=== PATIENT | male | born 1990 | race Caucasian/White ===

== ENCOUNTER 2016-07-21 19:29 | Inpatient (IN) | payer OTHER ==
--- NOTE | ~2016-07-21 | PA ---
Unit #: [id number] #: [id number] Patient: HOMER CEJA [id number] [facility] [address] [place] [address] [id number] MR#: [id number] NAME: HOMER CEJA. ROOM: [facility] Age: 25 Sex: M Admission Date: 07/21/2016 : 1990 Date of Assessment: 07/22/2016 Attending Physician: Javad Mansfield M.D. Admitting Physician: Javad Mansfield M.D. Primary Care Physician: Generic Doctor Not In System PSYCHIATRIC ASSESSMENT IDENTIFYING INFORMATION The patient is a 25-year-old white male admitted to the [address] [place] [address] for polysubstance dependence and suicidal ideation. CHIEF COMPLAINT None given. INFORMANT The patient, reliability is fair. HISTORY OF PRESENT ILLNESS The patient is a 25-year-old legally white male last admitted to this facility in April of this year. He had gone to the [facility] and had received a Vivitrol shot but since he left that facility and has relapsed into a use of heroin, methamphetamines and accidental alcohol the patient is reporting positive suicidal ideation at the time of admission. He denies homicidal ideation. He denies any psychotic symptoms. He is longer residing at the [facility] given his recent relapse and is staying with family. For more complete history of present illness please refer to previous dictated notes. PAST PSYCHIATRIC HISTORY Reviewed no changes. PAST MEDICAL HISTORY Reviewed no changes. MEDICATIONS The patient had been on Trileptal at the time of his last discharge but reports that the [facility] in which he was staying would not allow him to continue to have medication. ALLERGIES None. FAMILY HISTORY Noncontributory SOCIAL HISTORY Reviewed no changes. MENTAL STATUS EXAMINATION Unit #: [id number] #: [id number] Patient: HOMER CEJA At this time reveals the patient to be a well-developed, well-nourished white male, appearing his stated age. He is in no apparent physical distress at the time of examination. He is awake, alert, and oriented in all spheres. His mood is mildly dysphoric. His affect congruent. Speech is generally relevant and coherent. There are no gross deficits in memory or cognition noted. Intelligence is judged to be in the average range based on fund of knowledge. The patient is cooperative throughout the interview. He is currently endorsing positive suicidal ideation. He denies homicidal ideation. He denies any psychotic symptoms. His judgment and insight appear to be intact. The patient's assets motivation for change liabilities lack of resources. DIAGNOSTIC IMPRESSION 1. Opioid use disorder 2. Methamphetamine use disorder 3. Alcohol disorder 4. Sedative hypnotic use disorder 5. Mood disorder unspecified TREATMENT PLAN The patient will be restarted on Trileptal and we will look to restart the patient on Vivitrol. Trileptal will be reinitiated at a dose of 300 mg three times daily. ESTIMATE LENGTH OF STAY IN THE HOSPITAL Three to five days with followup to take place through the ausp[facility] of [facility] and the chemical dependence intensive outpatient program provided by this facility. Dictated by... Javad Mansfield M.D. ROBINSON/dallas TD: 07/22/2016 21:05 JOB #: [id number] PSYCHIATRIC ASSESSMENT Page 1 of 1 X Javad Mansfield MD X PSYCHIATRIC ASSESSMENT
--- NOTE | ~2016-07-21 | HP ---
Unit #: [id number] #: [id number] Patient: HOMER CEJA [id number] [place] [address] [id number] MR#: [id number] NAME: HOMER CEJA. ROOM: P214 Age: 25 Sex: M Admission Date: 07/21/2016 : 1990 Attending Physician: Javad Mansfield M.D. Admitting Physician: Javad Mansfield M.D. Primary Care Physician: Benita Doctor Not In System HISTORY AND PHYSICAL HISTORY OF PRESENT ILLNESS Homer is a 25 year old admitted to [address] [place] [address] because of his continued polysubstance abuse which includes IV methamphetamine, heroin, alcohol and benzodiazepines. PAST MEDICAL HISTORY 1. Long history of poly illicit substance abuse to include IV drugs. 2. History of withdrawal seizures, benzodiazepines. 3. Hepatitis C. PAST SURGICAL HISTORY Nothing reported. ALLERGIES No known drug allergies. SOCIAL HISTORY Smokes on occasion. Drinks alcohol on occasion. He has a long history of polysubstance abuse to include benzodiazepines, IV heroin and methamphetamine. FAMILY HISTORY Medically noncontributory. REVIEW OF SYSTEMS CONSTITUTIONAL: No fever or chills. HEENT: Denies any sore throat, ear pain or runny nose. CARDIOVASCULAR: Denies chest pain, irregular heart rhythm or palpitations. CHEST: Denies shortness of breath or cough. No hemoptysis. GASTROINTESTINAL: Denies nausea, vomiting, diarrhea or chronic constipation. ENDOCRINE: Denies history of increased thirst or urination. No recent significant weight loss or gain. GENITOURINARY: Denies dysuria, frequency, or hematuria. SKIN: Denies any rashes. HEMATOLOGIC: Denies history of increased bleeding or bruising. MUSCULOSKELETAL: Denies any hot, swollen joints. No generalized muscle pain. NEUROLOGIC: Denies problems with vision or speech. No frequent, severe headaches. No numbness, tingling or weakness in any extremities. Denies loss of bladder or bowel control. Unit #: [id number] #: [id number] Patient: HOMER CEJA CURRENT MEDICATIONS 1. Detox protocol 2. Trileptal 300 mg t.i.d. PHYSICAL EXAMINATION GENERAL: Alert, well-nourished, in no apparent distress. VITAL SIGNS: Blood pressure 114/76, heart rate 80, respirations 16, temperature 98.6. WEIGHT: 148 pounds. HEIGHT: 6'1". SKIN: Warm and dry without rash or lesion. HEENT: Normocephalic. TMs not viewed. Oral and nasal passages clear. Conjunctivae clear. Pupils equal, round and reactive to light and accommodation. Extraocular movements intact. NECK: Supple without lymphadenopathy or thyromegaly. HEART: Regular rate and rhythm without murmur. LUNGS: Clear. ABDOMEN: Soft, nontender. : Not done. EXTREMITIES: No evidence of cyanosis, clubbing or edema. Moves all extremities without focal deficit. NEUROLOGICAL: Grossly within normal limits. Cranial Nerves: II: Visual hanna are intact. III, IV AND : Extraocular movements are intact. Pupils are equal, round and reactive to light. V: Facial sensation is grossly normal. VII: Facial movements and expression are normal. VIII: Auditory acuity grossly intact. IX, X: Uvula is midline. Phonation is normal. XI: Patient shrugs shoulders and turns head normally. XII: Tongue protrudes in the midline. Sensory and Motor Function: Sensory and motor sensation is grossly normal. Motor: moves all extremities well. Coordination: Gait is normal. Deep Tendon Reflexes: Intact. IMPRESSION Psychiatric admission RECOMMENDATIONS PSYCHIATRIC: Per psychiatrist. MEDICAL: I see no contraindications to participating in facility's activities. MEDICAL PROGNOSIS Good. MEDICAL CONDITION Stable. Dictated by... Sarina Lopez P.A.-C. for Katie Hawthorne/dallas Unit #: [id number] #: [id number] Patient: HOMER CEJA TD: 07/22/2016 22:26 JOB #: [id number] HISTORY AND PHYSICAL Page 1 of 1 X Sarina Lopez HISTORY AND PHYSICAL
--- NOTE | ~2016-07-21 | PN ---
Unit #: [id number] #: [id number] Patient: HOMER CEJA [id number] [facility] [address] [place] [address] [id number] MR#: [id number] NAME: HOMER CEJA. ROOM: P214 Age: 25 Sex: M Admission Date: 07/21/2016 : 1990 Attending Physician: Javad Mansfiled M.D. Admitting Physician: Javad Mansfield M.D. Primary Care Physician: Generic Doctor Not In System [facility] PROGRESS NOTES DATE 07/23/2016 DISCUSSION The patient is abed today, continuing to complain of significant symptoms of opiate withdrawal. He is not requesting consideration for treatment in a residential facility. We will not be able to start ReVia secondary to hospital policy that the patient not receive this medication until seven days since his last use of heroin. Dr. Marie will assume care of the patient in my absence. Dictated by... Javad Mansfield M.D. CB/cheri TD: 07/23/2016 13:21 JOB #: [id number] [facility] PROGRESS NOTES Page 1 of 1 X Javad Mansfield MD PROGRESS NOTE
--- NOTE | ~2016-07-21 | DS ---
Unit #: [id number] #: [id number] Patient: HOMER CEJA [id number] [place] [address] [id number] MR#: [id number] NAME: HOMER CEJA. ROOM: [facility] Age: 25 Sex: M Admission Date: 07/21/2016 : 1990 Discharge Date: 07/24/2016 Attending Physician: Javad Mansfield M.D. Primary Care Physician: Generic Doctor Not In System DISCHARGE SUMMARY REASON FOR ADMISSION Polysubstance dependency and withdrawal related symptoms. DIAGNOSTIC STUDIES LABORATORY DATA: Patient had routine lab work all of which was within normal parameters. HOSPITAL COURSE Patient was admitted for detox issues on polysubstance including alcohol, stimulants, opiates and benzodiazepines. Patient was put on appropriate detox protocols and was encouraged to go to groups and activities as directed all of which patient did. Patient was also started on previous dose of Trileptal for which he had done very well on in the past 300 mg t.i.d. as a mood stabilizer. Patient was also tried on naltrexone given his chemical dependency issues and unfortunately, he did not tolerate it and was discontinued prior to discharge. Overall, as the hospital course proceeded, patient's detox symptoms waxed and waned and then resolved. He was able to go to groups and activities as directed, was compliant with direction from staff and treatment. At time of discharge, he was reporting all physical symptoms were resolved. His mood was improved and he was appropriate for discharge with plan to go to the [facility] and followup with his primary care physician. Additional options were offered to him but he declined them. Overall, he was felt to have been improved and was able to be discharged. DISCHARGE DIAGNOSES 1. Opiate dependency. 2. Stimulant dependency. 3. Alcohol dependency. 4. Sedative/hypnotic dependency. FOLLOWUP CARE Will be through his primary care doctor per the patient's wishes. DISCHARGE MEDICATIONS Trileptal 300 mg t.i.d. as a mood stabilizer. CONDITION AT DISCHARGE Improved. PROGNOSIS Fair to moderate. Unit #: [id number] #: [id number] Patient: HOMER CEJA DIET AND ACTIVITY Diet is regular. Activity as tolerated with sobriety encouraged. Dictated by... Liam Marie M.D. ROLAND/perez TD: 07/24/2016 15:26 JOB #: [id number] DISCHARGE SUMMARY Page 1 of 1 X Liam Marie MD DISCHARGE SUMMARY
[2016-07-22 16:05] LABS: BASOPHIL% 0.6 % (0-2.5); EOSINOPHIL# 0.6 X10e3 (0-0.7); EOSINOPHIL% 7.8 % (0.0-7.0); HEMATOCRIT 46.4 % (38.0-50.0); HEMOGLOBIN 15.3 gm/dL (13.0-16.0); LYMPHOCYTE# 2.1 X10e3 (1.0-3.5); LYMPHOCYTE% 28.7 % (17.0-45.0); MEAN CELL VOLUME 88.6 FL (83-96); MEAN CORPUSCULAR HEMOGLOBIN 29.3 PG (28-34); MEAN CORPUSCULAR HGB CONC 33.1 g/dL (30-36); MEAN PLATELET VOLUME 9.5 FL (6.5-11.5); MONOCYTE# 0.6 X10e3 (0-1.0); MONOCYTE% 8.5 % (3.0-12.0); NEUTROPHIL# 3.9 X10e3 (1.5-7.1); NEUTROPHIL% 54.4 % (40-75); PLATELET COUNT 197 X10e3 (140-420); RED BLOOD COUNT 5.23 X10e (3.90-5.60); RED CELL DISTRIBUTION WIDTH 13.3 % (11.0-15.5); WHITE BLOOD COUNT 7.2 X10e3 (4.0-10.5)
[2016-07-22 16:06] LABS: DIFF IND NO
[2016-07-22 16:22] LABS: THYROID STIMULATING HORMONE 1.52 uIU/ml (0.34-5.60)
[2016-07-22 16:30] LABS: FREE THYROXIN (T4) 0.96 ng/dL (0.58-1.64)
[2016-07-22 16:36] LABS: ALBUMIN SERUM 3.8 g/dL (3.5-5.0); BUN/CREATININE RATIO 14.28; CALCIUM SERUM 9.2 mg/dL (8.4-10.2); CREATININE SERUM 0.7 mg/dL (0.6-1.4); GLOM FILT RATE Estimated 133.1 mL/min (>60); POTASSIUM 3.5 mmol/L (3.5-5.1); PROTEIN TOTAL SERUM 7.2 g/dL (6.0-8.3)
== END 2016-07-24 09:30 | DRG 897 ==
LOC: P2S 19:29
PROVIDERS: Specialist
PROC: HZ2ZZZZ Detoxification Services for Substance Abuse Treatment (ICD-10-PCS; principal; 2016-07-21)
DX: F11.23 Opioid dependence with withdrawal (principal); F13.20 Sedative, hypnotic or anxiolytic dependence, uncomplicated; F15.20 Other stimulant dependence, uncomplicated; F10.20 Alcohol dependence, uncomplicated; F39 Unspecified mood [affective] disorder; B19.20 Unspecified viral hepatitis C without hepatic coma; Z72.0 Tobacco use
CPT/HCPCS: 80053; 84439; 84443; 85025; 86592

== ENCOUNTER 2016-09-12 15:57 | Emergency (ER) | payer OTHER | END 2016-09-12 16:05 | disposition left against medical advice (07) | LOC: CED 15:57 | DX: T40.1X1A Poisoning by heroin, accidental (unintentional), initial encounter (principal); F17.210 Nicotine dependence, cigarettes, uncomplicated; F11.129 Opioid abuse with intoxication, unspecified | CPT/HCPCS: 96374; 99282; 99283 ==

== ENCOUNTER 2016-09-15 20:00 | Inpatient (IN) | payer OTHER ==
--- NOTE | ~2016-09-15 | PA ---
Unit #: [id number] #: [id number] Patient: HOMER CEJA [id number] [place] [address] [id number] MR#: [id number] NAME: HOMER CEJA ROOM: [facility] Age: 25 Sex: M Admission Date: 09/15/2016 : 1990 Date of Assessment: 09/16/2016 Attending Physician: Javad Mansfield M.D. Admitting Physician: Javad Mansfield M.D. Primary Care Physician: Primary Care Physician No PSYCHIATRIC ASSESSMENT IDENTIFYING INFORMATION The patient is a 25-year-old white male admitting following a recent heroin overdose. CHIEF COMPLAINT None given INFORMANT Chart, patient could not aroused for interview. HISTORY OF PRESENT ILLNESS The patient is a 25-year-old white male well known to this physician and this facility. He was last discharged on 07/24/2016. He is readmitted following a relapse of polysubstance dependence including abuse of heroin, alcohol and methamphetamine. The patient had overdosed the day prior to admission requiring Narcan in the [facility] Emergency Room. The patient reports that he was trying to kill himself and continues to endorse positive suicidal ideation when evaluated yesterday. When seen today the patient cannot be aroused for further interview. For more complete history of illness please refer to previous dictated notes. PAST PSYCHIATRIC HISTORY Reviewed no changes. PAST MEDICAL HISTORY Reviewed no changes. MEDICATIONS 1. Seroquel 2. Trileptal 3. Trazodone FAMILY HISTORY Reviewed no changes. SOCIAL HISTORY Reviewed no changes. MENTAL STATUS EXAMINATION At this time reveals the patient to be a soundly sleeping white male who cannot aroused for interview in spite of multiple efforts on the part of this physician to do so. The patient assets to be assessed. Liabilities ongoing substance use. Unit #: [id number] #: [id number] Patient: HOMER CEJA DIAGNOSTIC IMPRESSION Opioid use disorder, alcohol use disorder, methamphetamine use disorder, hepatitis C. TREATMENT PLAN The patient will remain hospitalized for safety and stabilization. We will restart previously prescribed medications and suicidal precautions remain in place. The patient will participate in appropriate montelongo and milieu activities with an estimate length of stay in the hospital of 3 to 5 days. Dictated by... Katie Alexander TD: 09/17/2016 02:12 JOB #: [id number] PSYCHIATRIC ASSESSMENT Page 1 of 1 X Javad Mansfield MD X PSYCHIATRIC ASSESSMENT
--- NOTE | ~2016-09-15 | PN ---
Unit #: [id number] #: [id number] Patient: HOMER CEJA [id number] [facility] [address] [place] [address] [id number] MR#: [id number] NAME: HOMER CEJA ROOM: [facility] Age: 25 Sex: M Admission Date: 09/15/2016 : 1990 Attending Physician: Javad Mansfield M.D. Admitting Physician: Javad Mansfield M.D. Primary Care Physician: Primary Care Physician Xochitl PADILLA PROGRESS NOTES DATE 09/17/2016 DISCUSSION The patient is resting comfortably today and offers no new complaints. Staff reports no management issues but reports that he has been seclusive to room throughout much of his stay in the hospital. Dictated by... Javad Mansfield M.D. CB/dallas TD: 09/17/2016 11:45 JOB #: [id number] [facility] PROGRESS NOTES Page 1 of 1 X Javad Mansfield MD PROGRESS NOTE
--- NOTE | ~2016-09-15 | DS ---
Unit #: [id number] #: [id number] Patient: HOMER CEJA [id number] [facility] [address] [place] [address] [id number] I MR#: [id number] NAME: HOMER CEJA ROOM: [facility] Age: 25 Sex: M Admission Date: 09/15/2016 : 1990 Discharge Date: 09/19/2016 Attending Physician: Javad Mansfield M.D. Primary Care Physician: Primary Care Physician No DISCHARGE SUMMARY REASON FOR ADMISSION The patient is a 25-year-old white male, admitted to the [facility] unit following a recent heroin overdose. HOSPITAL COURSE The patient was admitted to the [facility] unit and placed on routine detoxification protocol for opioids. His detox was an uneventful one. By 09/19/2016, the patient requested discharge stating that he learned that he was facing arrest for "absconding." He denied suicidal ideation at that time and discharge was ordered. FINAL DIAGNOSES Opioid use disorder, alcohol use disorder, methamphetamine use disorder. Hepatitis C. DISPOSITION ON DISCHARGE The patient is discharged on no psychotropic or other medications. FOLLOWUP Followup will take place through the auspices of [facility]. PROGNOSIS The patient's prognosis is considered fair. Dictated by... Javad Mansfield M.D. CB/modl TD: 09/19/2016 13:26 JOB #: [id number] Unit #: [id number] #: [id number] Patient: HOMER CEJA DISCHARGE SUMMARY Page 1 of 1 X Javad Mansfield MD X DISCHARGE SUMMARY
--- NOTE | ~2016-09-15 | PN ---
Unit #: [id number] #: [id number] Patient: HOMER CEJA [id number] [facility] [address] [place] [address] [id number] I MR#: [id number] NAME: HOMER CEJA ROOM: [facility] Age: 25 Sex: M Admission Date: 09/15/2016 : 1990 Attending Physician: Javad Mansfield M.D. Admitting Physician: Javad Mansfield M.D. Primary Care Physician: Primary Care Physician Xochitl PADILLA PROGRESS NOTES DATE OF SERVICE 09/18/2016 DISCUSSION The patient is reporting some ongoing depressive symptoms having learned that he will be remanded to long-term upon his discharge from this facility. His diagnosis, therefore, will now include one of dysthymic disorder, F34.1. His detox continues with the patient continuing to complain of significant symptoms of GI discomfort and consistent opioid withdrawal. Dictated by... Javad Mansfield M.D. CB/bzludivina TD: 09/18/2016 14:22 JOB #: [id number] [facility] PROGRESS NOTES Page 1 of 1 X Javad Mansfield MD PROGRESS NOTE
--- NOTE | ~2016-09-15 | HP ---
Unit #: [id number] #: [id number] Patient: HOMER CEJA [id number] [place] [address] [id number] I MR#: [id number] NAME: HOMER CEJA ROOM: P177 Age: 25 Sex: M Admission Date: 09/15/2016 : 1990 Attending Physician: Javad Mansfield M.D. Admitting Physician: Javad Mansfield M.D. Primary Care Physician: Primary Care Physician No HISTORY AND PHYSICAL HISTORY OF PRESENT ILLNESS The patient is a 25-year-old male admitted to [facility] on 09/15/2016 for polysubstance abuse. PAST MEDICAL HISTORY 1. Withdrawal seizures 2. Hepatitis C 3. Polysubstance abuse 4. Nicotine dependence PAST SURGICAL HISTORY The patient denies. SOCIAL HISTORY He is unemployed and homeless. He smokes one pack of cigarettes daily and has a history of polysubstance abuse which includes heroin and methamphetamine. FAMILY MEDICAL HISTORY Noncontributory. ALLERGIES No known drug allergies. CURRENT MEDICATIONS 1. Seroquel 2. Trileptal 3. Trazodone REVIEW OF SYSTEMS CONSTITUTIONAL: No fever or chills. HEENT: Denies any sore throat, ear pain or runny nose. CARDIOVASCULAR: Denies chest pain, irregular heart rhythm or palpitations. CHEST: Denies shortness of breath or cough. No hemoptysis. GASTROINTESTINAL: Denies nausea, vomiting, diarrhea or chronic constipation. ENDOCRINE: Denies history of increased thirst or urination. No recent significant weight loss or gain. GENITOURINARY: Denies dysuria, frequency, or hematuria. SKIN: Denies any rashes. HEMATOLOGIC: Denies history of increased bleeding or bruising. MUSCULOSKELETAL: Denies any hot, swollen joints. No generalized muscle pain. Unit #: [id number] #: [id number] Patient: HOMER CEJA NEUROLOGIC: Denies problems with vision or speech. No frequent, severe headaches. No numbness, tingling or weakness in any extremities. Denies loss of bladder or bowel control. PHYSICAL EXAM GENERAL: He is awake, alert and oriented in no acute distress. VITAL SIGNS: Temperature 979, heart rate 91, respiration 18, blood pressure 122/67. HEIGHT: 6'0". WEIGHT: 160 pounds. SKIN: Warm and dry without rash or lesion. HEENT: Normocephalic. TMs not viewed. Oral and nasal passages clear. Conjunctivae clear. PERRLA. EOMs intact. NECK: Supple without lymphadenopathy or thyromegaly. HEART: Regular rate and rhythm without murmur. LUNGS: Clear. ABDOMEN: Soft, nontender. : Not done. EXTREMITIES: No evidence of cyanosis, clubbing or edema. Moves all without focal deficit. NEUROLOGICAL: Grossly within normal limits. Cranial Nerves: II: Visual hanna are intact. III, IV AND : Extraocular movements are intact. Pupils are equal, round and reactive to light. V: Facial sensation is grossly normal. VII: Facial movements and expression are normal. VIII: Auditory acuity grossly intact. IX, X: Uvula is midline. Phonation is normal. XI: Patient shrugs shoulders and turns head normally. XII: Tongue protrudes in the midline. Sensory and Motor Function: Sensory and motor sensation is grossly normal. Motor: moves all extremities well. IMPRESSION 1. Psychiatric admission. 2. Polysubstance abuse. 3. Withdrawal seizures. 4. Hepatitis C. 5. Nicotine dependence. RECOMMENDATIONS Psychiatric per psychiatrist. MEDICAL: No contraindication to participate in facility activities. MEDICAL PROGNOSIS Good. MEDICAL CONDITION Stable. Dictated by... Joseph Beverly/dallas Unit #: [id number] #: [id number] Patient: HOMER CEJA TD: 09/17/2016 03:33 JOB #: [id number] HISTORY AND PHYSICAL Page 1 of 1 X ROMMEL SANTA APRN HISTORY AND PHYSICAL
[2016-09-16 11:35] LABS: BASOPHIL% 0.5 % (0-2.5); EOSINOPHIL# 0.2 X10e3 (0-0.7); EOSINOPHIL% 3.6 % (0.0-7.0); HEMATOCRIT 44.5 % (38.0-50.0); LYMPHOCYTE# 1.7 X10e3 (1.0-3.5); MEAN CELL VOLUME 89.1 FL (83-96); MEAN CORPUSCULAR HGB CONC 33.7 g/dL (30-36); MEAN PLATELET VOLUME 9.2 FL (6.5-11.5); MONOCYTE# 0.7 X10e3 (0-1.0); MONOCYTE% 10.2 % (3.0-12.0); NEUTROPHIL% 59.7 % (40-75); PLATELET COUNT 158 X10e3 (140-420); RED CELL DISTRIBUTION WIDTH 13.7 % (11.0-15.5); WHITE BLOOD COUNT 6.7 X10e3 (4.0-10.5)
[2016-09-16 11:36] LABS: DIFF IND NO
[2016-09-16 11:50] LABS: ALBUMIN SERUM 3.3 g/dL (3.5-5.0); BILIRUBIN,TOTAL 0.4 mg/dL (0.2-2.0); BUN/CREATININE RATIO 6.25; CALCIUM SERUM 8.6 mg/dL (8.4-10.2); CREATININE SERUM 0.8 mg/dL (0.6-1.4); POTASSIUM 3.5 mmol/L (3.5-5.1)
[2016-09-18 12:37] LABS: URINE APPEARANCE CLEAR; URINE BILIRUBIN NEG (NEG); URINE BLOOD NEG (NEG); URINE COLOR DK YELLOW; URINE GLUCOSE NEG (NEG); URINE KETONE NEG (NEG); URINE LEUKOCYTE ESTERASE NEG (NEG); URINE NITRATE NEG (NEG); URINE PROTEIN NEG (NEG); URINE SPECIFIC GRAVITY 1.019 (1.003-1.035)
[2016-09-18 12:47] LABS: CULTURE INDICATED? NO
[2016-09-18 13:24] LABS: AMPHETAMINE NEG (NEG); BARBITURATES NEG (NEG); BENZODIAZEPINES NEG (NEG); COCAINE NEG (NEG); MARIJUANA NEG (NEG); OPIATES NEG (NEG); TRICYCLIC ANTIDEPRESSANTS NEG (NEG); U METHADONE NEG (NEG)
== END 2016-09-19 13:50 | DRG 897 ==
LOC: P1E 22:01
PROVIDERS: Specialist
PROC: HZ2ZZZZ Detoxification Services for Substance Abuse Treatment (ICD-10-PCS; principal; 2016-09-15)
DX: F11.10 Opioid abuse, uncomplicated (principal); R45.851 Suicidal ideations; K73.9 Chronic hepatitis, unspecified; F10.10 Alcohol abuse, uncomplicated; F15.10 Other stimulant abuse, uncomplicated; F17.210 Nicotine dependence, cigarettes, uncomplicated
CPT/HCPCS: 80053; 80307; 81003; 85025

== ENCOUNTER 2016-10-03 22:22 | Inpatient (IN) | payer OTHER ==
--- NOTE | ~2016-10-03 | PN ---
Unit #: [id number] #: [id number] Patient: HOMER CEJA [id number] [facility] [address] [place] [address] [id number] I MR#: [id number] NAME: HOMER CEJA ROOM: P185 Age: 25 Sex: M Admission Date: 10/04/2016 : 1990 Attending Physician: Javad Mansfield M.D. Admitting Physician: Javad Mansfield M.D. Primary Care Physician: Primary Care Physician Xochitl PADILLA PROGRESS NOTES DATE 10/07/2016 DISCUSSION The patient remains seclusive to room and abed but staff reports that he has been more mobile and is reporting less in the way of symptoms of opioid withdrawal. He should be ready for discharge within the next couple of days. Dictated by... Javad Mansfield M.D. CB/dallas TD: 10/07/2016 23:09 JOB #: [id number] [facility] PROGRESS NOTES Page 1 of 1 X Javad Mansfield MD PROGRESS NOTE
--- NOTE | ~2016-10-03 | PN ---
Unit #: [id number] #: [id number] Patient: HOMER CEJA [id number] [facility] [address] [place] [address] [id number] I MR#: [id number] NAME: HOMER CEJA ROOM: [facility] Age: 25 Sex: M Admission Date: 10/04/2016 : 1990 Attending Physician: Javad Mansfield M.D. Admitting Physician: Javad Mansfield M.D. Primary Care Physician: Primary Care Physician Xochitl PADILLA PROGRESS NOTES DATE 10/06/2016 DISCUSSION The patient is in less physical distress and is more ambulatory today. I have encouraged him to increase his participation within the therapeutic milieu as we continue his opioid detox. Dictated by... Javad Mansfield M.D. CB/perez TD: 10/06/2016 13:25 JOB #: [id number] [facility] PROGRESS NOTES Page 1 of 1 X Javad Mansfield MD X PROGRESS NOTE
--- NOTE | ~2016-10-03 | CO ---
Unit #: [id number] #: [id number] Patient: HOMER CEJA [id number] [place] [address] [id number] I MR#: [id number] NAME: HOMER CEJA ROOM: P185 Age: 25 Sex: M Admission Date: 10/04/2016 : 1990 Attending Physician: Javad Mansfeild M.D. Primary Care Physician: Primary Care Physician No Consultation Date: 10/07/2016 CONSULTATION REPORT Consult was requested by Dr. Mansfield and completed on 10/07/2016. HISTORY OF PRESENT ILLNESS Homer reports left-sided pain for the past week. He reports that it feels like his whole left side is locked up. The pain feels like occasional shooting pain that pulsates and goes to his left arm, leg, hip, and back. He reports that prior to this pain, he was on amphetamines and was not eating, sleeping, or drinking for 5 days. Once he stops the medication he noticed this pain. He also initially had noticed some blood in his urine and does have a history of UTIs, now he is complaining of some burning with urination. He has not had any fever, temperature is 98.1, 97.9. He does not have history of any kidney stones. He is not sure exactly what caused the UTIs in the past. He was seen in the ER a few days ago when x-ray was normal. He has no other complaints. PHYSICAL EXAMINATION CARDIAC: Regular rate and rhythm. No murmurs, gallops, or rubs. RESPIRATORY: Clear to auscultation bilaterally. ABDOMEN: Bowel sounds positive in all 4 quadrants. Left-sided abdominal tenderness to palpation, left-sided CVA tenderness or flank pain. NEUROLOGIC: Cranial nerves intact. Normal sensation and normal movement. MUSCULOSKELETAL: Range of motion within normal limits in all extremities. DIAGNOSTIC STUDIES LABORATORY RESULTS: UA showed 2+ leukocyte esterase, 50 to 100 white blood cells, and 1+ bacteria. No CMP or CBC has been completed since May 06 nor reordered. ASSESSMENT AND PLAN 1. Abnormal urinalysis likely urinary tract infection. We will begin Bactrim DS one tablet p.o. b.i.d. for 10 days. We will also obtain urine gonorrhea and chlamydia, culture and sensitivity. It is possible that this could be caused by a stone. I have ordered CBC and CMP. 2. Acute left-sided pain. CBC and CMP ordered. The patient will be treated for urinary tract infection. If symptoms continue, please notify. Dictated by... Joseph Paulino/brian Unit #: [id number] #: [id number] Patient: HOMER CEJA TD: 10/07/2016 19:06 JOB #: [id number] CONSULTATION REPORT Page 1 of 1 X JOSÉ LUIS BLACK APRN X CONSULTATION REPORT
--- NOTE | ~2016-10-03 | PN ---
Unit #: [id number] #: [id number] Patient: HOMER CEJA [id number] [facility] [address] [place] [address] [id number] MR#: [id number] NAME: HOMER CEJA ROOM: [facility] Age: 25 Sex: M Admission Date: 10/04/2016 : 1990 Attending Physician: Javad Mansfield M.D. Admitting Physician: Javad Mansfield M.D. Primary Care Physician: Primary Care Physician Xochitl PADILLA PROGRESS NOTES DATE 10/05/2016 DISCUSSION The patient is abed. He continues to complain of significant discomfort but having been sent out for medical clearance. No acute findings were noted. Patient continues to complain of significant symptoms of opioid withdrawal. Dictated by... Javad Mansfield M.D. CB/perez TD: 10/05/2016 18:51 JOB #: [id number] RANDY PROGRESS NOTES Page 1 of 1 X Javad Mansfield MD X PROGRESS NOTE
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
--- NOTE | ~2016-10-03 | DS ---
Unit #: [id number] #: [id number] Patient: HOMER CEJA [id number] [facility] [address] [place] [address] [id number] I MR#: [id number] NAME: HOMER CEJA ROOM: [facility] Age: 25 Sex: M Admission Date: 10/04/2016 : 1990 Discharge Date: 10/08/2016 Attending Physician: Javad Mansfield M.D. Primary Care Physician: Primary Care Physician No DISCHARGE SUMMARY REASON FOR ADMISSION The patient is a 25-year-old white male, admitted to the [facility] for admitted to the [facility] unit with a history of a recent relapse of substance use. HOSPITAL COURSE The patient was admitted to the [facility] and placed on suicide precautions. Routine detoxification protocol for opioids was initiated. The patient did complain of difficult withdrawal symptoms and difficulty with ambulation to a point, where he was actually cleared in the local emergency room and found to have no real physical deficits. By 10/08/2016, the patient requested discharge and stating that he was going to live with his mother and discharge was ordered. FINAL DIAGNOSES Opioid use disorder; methamphetamine use disorder; hepatitis C. DISPOSITION ON DISCHARGE The patient is discharged on the following medications: Bactrim 10 mg b.i.d. for 10 days for urinary tract infection. FOLLOWUP Followup will take place through the auspices of community mental health resources. PROGNOSIS His prognosis is considered fair. Dictated by... Javad Mansfield M.D. CB/brian TD: 10/08/2016 15:07 JOB #: [id number] Unit #: [id number] #: [id number] Patient: HOMER CEJA DISCHARGE SUMMARY Page 1 of 1 X Javad Mansfield MD X DISCHARGE SUMMARY
--- NOTE | ~2016-10-03 | CO ---
Unit #: [id number] #: [id number] Patient: HOMER CEJA [id number] [facility] [address] [place] [address] [id number] I MR#: [id number] NAME: HOMER CEJA ROOM: [facility] Age: 25 Sex: M Admission Date: 10/04/2016 : 1990 Attending Physician: Javad Mansfield M.D. Primary Care Physician: Primary Care Physician No Consultation Date: 10/04/2016 CONSULTATION REPORT SUBJECTIVE Homer is a 25-year-old admitted with a bruised foot and complaining of stiffness on the left side of his body. He was seen for his admission H and P on 10/04/2016. He was examined and both of these areas were addressed under the H and P. Please see H and P dated 10/04/2016. Within the hour after I had examined Homer, nursing staff was very concerned that he continues to complain of left-sided pain. I reassured them that the exam was negative and that I thought that he was drug seeking. They wanted to send him out to the emergency room. I did not give that order. Nursing staff then called his admitting psychiatrist which gave the order to transport him to the emergency room. X-rays of the left femur and right foot were completely within normal limits. He was sent directly back to [facility] for continued psychiatric care. Dictated by... Sarina Lopez P.A.-C. for Katie Hawthorne/brian TD: 10/12/2016 22:26 JOB #: [id number] CONSULTATION REPORT Page 1 of 1 X Sarina Lopez CONSULTATION REPORT
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
[2016-10-06 11:13] LABS: URINE APPEARANCE CLEAR; URINE BILIRUBIN NEG (NEG); URINE BLOOD 1+ (NEG); URINE COLOR DK YELLOW; URINE GLUCOSE NEG (NEG); URINE KETONE NEG (NEG); URINE LEUKOCYTE ESTERASE 2+ (NEG); URINE NITRATE NEG (NEG); URINE PH 7.5 (5-8); URINE PROTEIN NEG (NEG)
[2016-10-06 11:18] LABS: URINE BACTERIA AUWI 1+ (NEGATIVE); URINE SQUAMOUS EPITHELIAL CELL NONE SEEN /[HPF]; UWBCS1 AUWI 50-100 (0-5)
[2016-10-06 12:46] LABS: URINE MUCUS PRESENT
[2016-10-06 12:47] LABS: AMPHETAMINE POS (NEG); BARBITURATES NEG (NEG); BENZODIAZEPINES NEG (NEG); COCAINE NEG (NEG); MARIJUANA NEG (NEG); OPIATES POS (NEG); TRICYCLIC ANTIDEPRESSANTS NEG (NEG); U METHADONE NEG (NEG)
[2016-10-07 18:42] LABS: BASOPHIL% 0.5 % (0-2.5); EOSINOPHIL# 0.1 X10e3 (0-0.7); EOSINOPHIL% 1.2 % (0.0-7.0); HEMATOCRIT 46.6 % (38.0-50.0); HEMOGLOBIN 15.6 gm/dL (13.0-16.0); LYMPHOCYTE# 1.9 X10e3 (1.0-3.5); LYMPHOCYTE% 18.1 % (17.0-45.0); MEAN CELL VOLUME 88.5 FL (83-96); MEAN CORPUSCULAR HEMOGLOBIN 29.6 PG (28-34); MEAN CORPUSCULAR HGB CONC 33.4 g/dL (30-36); MEAN PLATELET VOLUME 8.5 FL (6.5-11.5); MONOCYTE# 1.1 X10e3 (0-1.0); MONOCYTE% 10.1 % (3.0-12.0); NEUTROPHIL# 7.4 X10e3 (1.5-7.1); NEUTROPHIL% 70.1 % (40-75); PLATELET COUNT 306 X10e3 (140-420); RED BLOOD COUNT 5.26 X10e (3.90-5.60); RED CELL DISTRIBUTION WIDTH 13.5 % (11.0-15.5); WHITE BLOOD COUNT 10.6 X10e3 (4.0-10.5)
[2016-10-07 18:50] LABS: DIFF IND NO
[2016-10-07 19:03] LABS: ALBUMIN SERUM 3.1 g/dL (3.5-5.0); BILIRUBIN,TOTAL 0.7 mg/dL (0.2-2.0); CALCIUM SERUM 8.8 mg/dL (8.4-10.2); CREATININE SERUM 0.6 mg/dL (0.6-1.4); GLOM FILT RATE Estimated 141.8 mL/min (>60); POTASSIUM 4.6 mmol/L (3.5-5.1); PROTEIN TOTAL SERUM 7.1 g/dL (6.0-8.3)
== END 2016-10-08 15:50 | disposition home or self-care (01) | DRG 897 ==
LOC: P1E 10-04 01:28
PROVIDERS: Specialist
PROC: HZ2ZZZZ Detoxification Services for Substance Abuse Treatment (ICD-10-PCS; principal; 2016-10-04)
DX: F11.23 Opioid dependence with withdrawal (principal); F13.20 Sedative, hypnotic or anxiolytic dependence, uncomplicated; F15.20 Other stimulant dependence, uncomplicated; B19.20 Unspecified viral hepatitis C without hepatic coma; Z72.0 Tobacco use
CPT/HCPCS: 80053; 80307; 81003; 85025

== ENCOUNTER 2016-10-04 22:24 | Emergency (ER) | payer OTHER ==
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
[2016-10-05 00:13] LABS: BASOPHIL# 0.1 X10e3 (0-0.3); BASOPHIL% 0.6 % (0-2.5); EOSINOPHIL# 0.2 X10e3 (0-0.7); EOSINOPHIL% 1.5 % (0.0-7.0); HEMATOCRIT 40.5 % (38.0-50.0); HEMOGLOBIN 13.8 gm/dL (13.0-16.0); LYMPHOCYTE# 1.7 X10e3 (1.0-3.5); LYMPHOCYTE% 15.2 % (17.0-45.0); MEAN CELL VOLUME 86.8 FL (83-96); MEAN CORPUSCULAR HEMOGLOBIN 29.6 PG (28-34); MEAN CORPUSCULAR HGB CONC 34.2 g/dL (30-36); MEAN PLATELET VOLUME 8.6 FL (6.5-11.5); MONOCYTE# 1.4 X10e3 (0-1.0); NEUTROPHIL# 7.6 X10e3 (1.5-7.1); NEUTROPHIL% 69.7 % (40-75); PLATELET COUNT 149 X10e3 (140-420); RED BLOOD COUNT 4.67 X10e (3.90-5.60); RED CELL DISTRIBUTION WIDTH 13.2 % (11.0-15.5); WHITE BLOOD COUNT 10.9 X10e3 (4.0-10.5)
[2016-10-05 00:14] LABS: DIFF IND NO
[2016-10-05 00:36] LABS: BUN/CREATININE RATIO 14.28; CALCIUM SERUM 8.4 mg/dL (8.4-10.2); CREATININE SERUM 0.7 mg/dL (0.6-1.4); GLOM FILT RATE Estimated 133.1 mL/min (>60); MAGNESIUM 1.8 mg/dL (1.6-3.0); POTASSIUM 3.1 mmol/L (3.5-5.1)
== END 2016-10-05 02:45 | disposition home or self-care (01) ==
LOC: CED 22:24
PROVIDERS: Student in an Organized Health Care Education/Training Program
DX: S90.31XA Contusion of right foot, initial encounter (principal); M79.652 Pain in left thigh; F11.23 Opioid dependence with withdrawal; E87.6 Hypokalemia; F17.200 Nicotine dependence, unspecified, uncomplicated; W22.8XXA Striking against or struck by other objects, initial encounter; Y92.9 Unspecified place or not applicable
CPT/HCPCS: 36415; 73552; 73630; 80048; 82550; 83735; 85025; 99284

== ENCOUNTER 2016-11-01 | Inpatient (IN) | payer OTHER ==
[~2016-11-01] VITALS: Ht 182.9 cm; Wt 64.0 kg
--- NOTE | ~2016-11-01 | A ---
[facility] Nutrition Therapy DATE: 11/02/16 Patient: HOMER CEJA Physician: CLAUDIA Address: [address] [facility] Room/Bed: [address], Zip: [place] [address] Admit Date: 11/01/16 Date of : [birth year] Height: 6 0 Weight: [id number] NUTRITIONAL ASSESSMENT: REASON: UNINTENTIONAL WEIGHT LOSS PATIENT ADMITTED FOR HI, SI, AND DETOX PMH: HEP B AND C Anthropometrics: HT: 6'0", WT: 141#, BMI: 19.1, %IBW: 79 Labs: NO LABS AVAILABLE Meds: ZYPREXA, DETOX PROTOCOL Assessment: PATIENT IS A 26 Y/O MALE ADMITTED FOR SI, HI, AND DETOX. PATIENT IS CURRENTLY UNEMPLOYED, HOMELESS, SMOKES 1/2 PPD, HAS DAILY HEROIN AND METH USE, AND HAS FREQUENT ETOH, MARIJUANA, AND KLONOPIN USE. PATIENT HAS MULTIPLE INPATIENT PSYCH AND CHEMICAL DEPENDENCY HOSPITALIZATIONS. HIS LAST D/C FROM THIS FACILITY WAS 10/08/16 AND HE HAS BEEN NON-COMPLIANT WITH HIS MEDICATIONS. PATIENT IS ALSO NOTED TO BE AGGITATED D/T HIS 72 HOUR HOLD. UPON ADMIT PATIENT STATED A POOR APPETITE WITH A 30# WEIGHT LOSS X 1 MONTH, AND HE HAD NOT SLEPT IN 2 DAYS. WEIGHT HX PER [employer] SHOWS FLUCTUATING WEIGHTS OVER THE LAST 2 YEARS WITH HIS UBW AROUND ~150-155#. CURRENT PO INTAKES ARE UNAVAILABLE. THERE ARE NO GI OR SKIN ISSUES NOTED ATT. PATIENT IS ON A REGULAR DIET. THIS RD SUSPECTS PATIENT'S WEIGHT AND APPETITE WILL STABILIZE AND POSSIBLY INCREASE FOLLOWING DETOX. Dx: UNINTENTIONAL WEIGHT LOSS R/T CURRENT CONDITIONS, DETOX AEB WEIGHT LOSS, DECREASED APPETITE, NUTRITIONAL RISK POINT Intervention: REGULAR DIET, MEDS PER MD, DETOX, PSYCH Monitoring, Evaluation and Goals: 1. ADEQUATE PO INTAKES >50% OF MEALS 2. PREVENT, CORRECT MICRO/MACRO NUTRIENT DEFICIENCIES 3. WEIGHT; PREVENT FURTHER WEIGHT LOSS MONITOR: WEIGHTS, LABS, PO/FLUID INTAKES Recommendations: 1. CONTINUE REGULAR DIET TOLERATED. OFFER SNACKS BETWEEN MEALS. IF PATIENT HAS C/O HUNGER PLEASE ORDER LARGER PORTIONS AND RD WILL APPROVE 2. ENCOURAGE ADEQUATE PO AND FLUID INTAKES [facility] Nutrition Therapy DATE: 11/02/16 Patient: HOMER CEJA Physician: CLAUDIA Address: [address] Room/Bed: [address], Zip: [place] [address] Admit Date: 11/01/16 Date of : [birth year] Height: 6 0 Weight: 140 63.262144 3. OBTAIN WEIGHTS ROUTINELY (EVERY 3-4 DAYS) 4. IF PO INTAKES ARE BELOW 50% OF MEALS PLEASE ORDER ENSURE BID TO PROMOTE ADEQUATE KCAL AND PROTEIN INTAKES RD TO F/U PER PROTOCOL AND PRN R/T PATIENT MILDLY COMPROMISED Respectfully, JEANNINE LUTZ, SAUD, LD [employer] [facility] cc: client file
--- NOTE | ~2016-11-01 | DS ---
Unit #: [id number] #: [id number] Patient: HOMER CEJA [id number] [facility] [address] [place] [address] [id number] I MR#: [id number] NAME: HOMER CEJA ROOM: [facility] Age: 26 Sex: M Admission Date: 11/01/2016 : 1990 Discharge Date: 11/04/2016 Attending Physician: Javad Mansfield M.D. Primary Care Physician: Alfreda Christina DISCHARGE SUMMARY REASON FOR ADMISSION The patient is a 26-year-old white male with a history of methamphetamine abuse, admitted with methamphetamine-induced psychosis and perceptual disturbance. HOSPITAL COURSE The patient was admitted to the [facility] unit. He was initially admitted to the -[facility] unit, but because of his psychotic and threatening behavior, he was transferred to the [address] [place] [address] unit. This behavior cleared rapidly with resolution of the patient's methamphetamine intoxication. He was pleasant and cooperative throughout the remainder of his stay in the hospital and requested discharge on 11/04/2016 stating a wish to go to "[facility] Discharge was ordered. FINAL DIAGNOSES Methamphetamine use disorder with intoxication with perceptual disturbance, resolved. DISPOSITION ON DISCHARGE The patient is discharged on no psychotropic or other medications. FOLLOWUP Followup will take place through the auspices of community mental health resources, specifically "[facility]." PROGNOSIS The patient's prognosis is fair. Dictated by... Javad Mansfield M.D. CB/brian TD: 11/04/2016 22:49 JOB #: [id number] Unit #: [id number] #: [id number] Patient: HOMER CEJA DISCHARGE SUMMARY Page 1 of 1 X Javad Mansfield MD X DISCHARGE SUMMARY
--- NOTE | ~2016-11-01 | PN ---
Unit #: [id number] #: [id number] Patient: HOMER CEJA [id number] [facility] [address] [place] [address] [id number] I MR#: [id number] NAME: HOMER CEJA ROOM: [facility] Age: 26 Sex: M Admission Date: 11/01/2016 : 1990 Attending Physician: Javad Mansfield M.D. Admitting Physician: Javad Mansfield M.D. Primary Care Physician: Alfreda PADILLA PROGRESS NOTES DATE 11/03/2016 DISCUSSION The patient is exhibiting little in the way of signs or symptoms of withdrawal and denies suicidal ideation. We will plan on a.m. discharge with the patient planning to go to [facility] the following day. Dictated by... Javad Mansfield M.D. CB/sigrid TD: 11/03/2016 13:10 JOB #: [id number] RANDY PROGRESS NOTES Page 1 of 1 X Javad Mansfield MD PROGRESS NOTE
--- NOTE | ~2016-11-01 | HP ---
Unit #: [id number] #: [id number] Patient: HOMER CEJA [id number] [facility] [address] [place] [address] [id number] I MR#: [id number] NAME: HOMER CEJA ROOM: 13 Age: 26 Sex: M Admission Date: 11/01/2016 : 1990 Attending Physician: Javad Mansfield M.D. Admitting Physician: Javad Mansfield M.D. Primary Care Physician: Alfreda Christina HISTORY AND PHYSICAL NOTE Homer is a 26 year old admitted to [address] [place] [address] because of his continued polysubstance abuse. She was just discharged from this facility after treatment for the same. The patient was seen and H and P dated 10/04/2016 was reviewed. This is current. No changes. Please see H and P dated 10/04/2016. Dictated by... Sarina Lopez P.A.-C. for Katie Hawthorne/dallas TD: 11/01/2016 21:31 JOB #: [id number] HISTORY AND PHYSICAL Page 1 of 1 X Sarina Lopez HISTORY AND PHYSICAL
--- NOTE | ~2016-11-01 | PA ---
Unit #: [id number] #: [id number] Patient: HOMER CEJA [id number] [facility] [address] [place] [address] [id number] I MR#: [id number] NAME: HOMER CEJA ROOM: [facility] Age: 26 Sex: M Admission Date: 11/01/2016 : 1990 Date of Assessment: 11/01/2016 Attending Physician: Javad Mansfield M.D. Admitting Physician: Javad Mansfield M.D. Primary Care Physician: Alfreda Christina PSYCHIATRIC ASSESSMENT IDENTIFYING INFORMATION The patient is a 26-year-old white male with a history of methamphetamine abuse. He was admitted after he had presented to this facility voicing positive suicidal and homicidal ideation. INFORMANT(S) Patient and chart. RELIABILITY Poor. CHIEF COMPLAINT "I need to get out of here man." HISTORY OF PRESENT ILLNESS The patient is a 26-year-old white male last discharged from this facility on 10/08/2016. He has a history of methamphetamine abuse with methamphetamine induced psychosis. He had presented to this facility last evening after he had initially been accepted to the intensive outpatient program on 10/30/2016. Yesterday, the patient reported that he was having positive and homicidal ideation and claimed access to a firearm. 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 The patient reports a history of hepatitis C and B. He is currently denying suicidal ideation but is somewhat agitated and had to be transferred from the [address] [place] [address] unit to the [address] [place] [address] unit secondary to his agitation. For a more complete history of present illness, please refer to previous dictated notes. PAST PSYCHIATRIC HISTORY Reviewed, no changes. FAMILY HISTORY/SOCIAL HISTORY Reviewed, no changes. MEDICAL HISTORY Reviewed, no changes. MEDICATION HISTORY None. ALLERGIES None. Unit #: [id number] #: [id number] Patient: HOMER CEJA MENTAL STATUS EXAM At this time reveals the patient to be a well-developed, well-nourished somewhat thin white male appearing stated age. He is in no apparent physical distress at time of examination. He is awake, alert, oriented in all spheres. His mood is angry and irritable. His affect labile. Speech is generally relevant and coherent. There are no gross deficits in memory or cognition noted. Intelligence is judged to be in the average range based on fund of knowledge. The patient is less than optimally cooperative during interview. He is currently reporting no suicidal or homicidal ideation and denies any psychotic symptoms. His judgement and insight appear to be somewhat impaired. ASSETS AND LIABILITIES Patient's assets to be assessed. Liabilities, lack of resources. ADMITTING DIAGNOSES 1. Methamphetamine use disorder with intoxication and delusions. 2. Substance induced mood disorder. 3. Hepatitis B and C per patient history. PSYCHIATRIC PLAN/TREATMENT GOALS The patient remains hospitalized for safety and stabilization. Suicide precautions remain in place. At this point, I will not initiate any medication but will leave an order for Zydis to be given on a p.r.n. basis for psychosis. ESTIMATED LENGTH OF STAY Three to five days. Dictated by... Javad Mansfield M.D. ROBINSON/perez TD: 11/01/2016 15:12 JOB #: [id number] PSYCHIATRIC ASSESSMENT Page 1 of 1 X Javad Mansfield MD X PSYCHIATRIC ASSESSMENT
[2016-11-01 09:51] LABS: URINE APPEARANCE CLEAR; URINE BILIRUBIN NEG (NEG); URINE BLOOD NEG (NEG); URINE COLOR DK YELLOW; URINE GLUCOSE NEG (NEG); URINE KETONE NEG (NEG); URINE LEUKOCYTE ESTERASE NEG (NEG); URINE NITRATE NEG (NEG); URINE PH 6.5 (5-8); URINE PROTEIN NEG (NEG); URINE SPECIFIC GRAVITY 1.024 (1.003-1.035)
[2016-11-01 10:14] LABS: AMPHETAMINE POS (NEG); BARBITURATES NEG (NEG); BENZODIAZEPINES NEG (NEG); COCAINE NEG (NEG); MARIJUANA NEG (NEG); OPIATES NEG (NEG); TRICYCLIC ANTIDEPRESSANTS NEG (NEG); U METHADONE NEG (NEG)
== END 2016-11-04 11:44 | disposition home or self-care (01) | DRG 897 ==
LOC: P2S 03:59 → P1S 03:59
PROVIDERS: Specialist
DX: F15.122 Other stimulant abuse with intoxication with perceptual disturbance (principal); R45.851 Suicidal ideations; F15.14 Other stimulant abuse with stimulant-induced mood disorder; Z86.19 Personal history of other infectious and parasitic diseases; R45.850 Homicidal ideations
CPT/HCPCS: 80307; 81003